=== PATIENT | male | born 2000 | race Caucasian/White ===

== ENCOUNTER 2024-01-11 15:21 | Emergency (ER) | payer OTHER, SELFPAY ==
[2024-01-11 15:26] VITALS: BP 115/73; PULSE 78; RESP 16; TEMP 36.6; O2SAT 97; BMI 30.8
--- NOTE | 2024-01-11 19:32 | ED.NURSE ---
pt. left without being seen. patient signed refusal form. pt. ambulatory out of ER.
== END 2024-01-11 19:33 | disposition left against medical advice (07) ==
DX: Z53.21 Procedure and treatment not carried out due to patient leaving prior to being seen by health care provider (principal)